=== PATIENT | male | born 1930 | race Caucasian/White ===

== ENCOUNTER 2017-07-24 02:13 | Inpatient (IN) | payer MEDICARE ==
[~2017-07-24] VITALS: Ht 170.2 cm; Wt 74.9 kg
[2017-07-24 02:33] LABS: GLUCOSE,POINT OF CARE 119 MG/DL (70-110)
[2017-07-24 03:00] LABS: BASOPHILS # (AUTO) 0.02 K/uL (0.00-0.20); BASOPHILS % (AUTO) 0.2 % (0.0-2.0); EOSINOPHILS # (AUTO) 0.11 K/uL (0.00-0.70); EOSINOPHILS % (AUTO) 1.07 % (1.0-6.0); HEMATOCRIT 46.7 % (41-53); HEMOGLOBIN 15.7 g/dL (13.5-17.5); LYMPHOCYTES # (AUTO) 1.2 K/uL (1.0-4.8); LYMPHOCYTES % (AUTO) 11.6 % (22.0-44.0); MEAN CORPUSCULAR HGB CONC 33.7 G/dL (31.0-37.0); MEAN CORPUSCULAR VOLUME 95 fL (80-100); MONOCYTES # (AUTO) 0.8 K/uL (0.1-1.0); MONOCYTES % (AUTO) 8.3 % (2.0-9.0); NEUTROPHILS % (AUTO) 78.9 % (40.0-70.0); PLATELET COUNT (AUTO) 151 K/uL (150-450); RED BLOOD CELL COUNT(AUTO) 4.91 MIL/uL (4.50-5.90); RED CELL DISTRIBUTION WIDTH 13.2 % (11.5-14.5)
[2017-07-24 03:20] LABS: ANION GAP 6 mmol/L (8-16); CALCIUM, TOTAL 9.3 mg/dL (8.8-10.5); CARBON DIOXIDE 31 mmol/L (22-29); CHLORIDE 104 mmol/L (98-107); CREATININE 1.08 mg/dL (0.60-1.30); GLOMERULAR FILTR. RATE CALC > 60 mL/min (>60); GLUCOSE,RANDOM 115 mg/dL (70-110); POTASSIUM 4.2 mmol/L (3.5-5.1); SODIUM SERUM 141 mmol/L (136-145); UREA NITROGEN, BLOOD 17 mg/dL (7-18)
[2017-07-24 03:26] LABS: ALANINE AMINOTRANSFERASE 24 U/L (12-78); ALBUMIN 3.9 g/dL (3.4-5.0); ALKALINE PHOSPHATASE 94 U/L (46-116); ASPARTATE AMINOTRANSFERASE 22 U/L (15-37); BILIRUBIN,TOTAL 0.4 mg/dL (0.1-1.0); TOTAL PROTEIN, SERUM 7.1 g/dL (6.4-8.2)
[2017-07-24 06:44] LABS: APPEARANCE,URINE CLEAR (CLEAR); BILIRUBIN,URINE NEGATIVE (NEGATIVE); GLUCOSE, URINE (UA) NEGATIVE (NEGATIVE); KETONES,URINE NEGATIVE (NEGATIVE); LEUKOCYTE ESTERASE ,URINE NEGATIVE (NEGATIVE); NITRATE,URINE NEGATIVE (NEGATIVE); OCCULT BLOOD,URINE NEGATIVE (NEGATIVE); PH,URINE 5.5 (5.0-8.0); PROTEIN,URINE NEGATIVE (NEGATIVE); UROBILINOGEN,URINE 0.2 mg/dL (<=1.0)
[2017-07-24] MEDS ORDERED: ONDANSETRON HCL 4 MG/2 ML VIAL IVP PRN ×2 (10:30→14:30)
[2017-07-24] MEDS ORDERED: ACETAMINOPHEN 325 MG TABLET PO PRN ×2 (10:30→14:30)
[2017-07-24] MEDS ORDERED: 0.9% SODIUM CHLORIDE 10 ML SYRINGE IVP PRN (10:30)
[2017-07-24 11:30] VITALS: BP 148/96
[2017-07-24] MEDS ORDERED: INFLUENZA VIRUS VACCINE QVS 2017-18 (3YR+)/PF 60 MCG/0.5 ML SYRINGE IM ONE (11:45)
[2017-07-24] MEDS ORDERED: HYDROCODONE/ACETAMINOPHEN 5-325 MG TABLET PO PRN (14:30)
[2017-07-24] MEDS ORDERED: SODIUM CHLORIDE 0.9% 1,000 ML IV ONE (14:30)
[2017-07-24] MEDS ORDERED: BISACODYL 10 MG RECTAL RECTAL SUPPOSITORY PR PRN (14:30)
[2017-07-24] MEDS ORDERED: MAGNESIUM HYDROXIDE SUSPENSION 30 ML UDCUP PO PRN (14:30)
[2017-07-24] MEDS ORDERED: ZOLPIDEM TARTRATE 5 MG TABLET PO PRN (14:30)
[2017-07-24] MEDS ORDERED: MORPHINE SULFATE 2 MG/ML SYRINGE IVP PRN (14:30)
[2017-07-24 15:54] VITALS: BP 133/69
[2017-07-24 16:05] VITALS: BP 128/82
[2017-07-24] MEDS: HEPARIN SODIUM,PORCINE 5,000 UNITS/ML VIAL SQ SCH ×2 (17:40→23:33)
[2017-07-24 19:50] VITALS: BP 138/66
[2017-07-24] MEDS: DOCUSATE SODIUM 100 MG CAPSULE PO SCH (20:17)
[2017-07-24] MEDS: RisperiDONE 1 MG TABLET PO SCH (20:17)
[2017-07-24] MEDS ORDERED: DOCUSATE SODIUM 100 MG CAPSULE PO SCH (21:00)
[2017-07-24] MEDS: VENLAFAXINE HCL 150 MG ER CAPSULE PO SCH (23:33)
[2017-07-25] VITALS (7 sets, daily range): BP systolic 108–126; BP diastolic 65–68
[2017-07-25] MEDS ORDERED: PANTOPRAZOLE SODIUM 40 MG DR TABLET PO SCH (08:00)
[2017-07-25] MEDS: HEPARIN SODIUM,PORCINE 5,000 UNITS/ML VIAL SQ SCH ×3 (08:59→23:45)
[2017-07-25] MEDS: ASPIRIN 81 MG EC TABLET PO SCH (08:59)
[2017-07-25] MEDS: DOCUSATE SODIUM 100 MG CAPSULE PO SCH ×2 (08:59→21:11)
[2017-07-25] MEDS ORDERED: AmLODIPine BESYLATE 5 MG TABLET PO SCH (09:00)
[2017-07-25] MEDS: ATENOLOL 50 MG TABLET PO SCH (09:00)
[2017-07-25] MEDS: PANTOPRAZOLE SODIUM 40 MG DR TABLET PO SCH (09:00)
[2017-07-25 10:33] LABS: FOLATE SERUM 11.2 ng/mL (5.4-)
[2017-07-25] MEDS: RisperiDONE 1 MG TABLET PO SCH (21:11)
[2017-07-25] MEDS: VENLAFAXINE HCL 150 MG ER CAPSULE PO SCH (21:11)
[2017-07-26 05:24] VITALS: BP 116/60
[2017-07-26] MEDS: ASPIRIN 81 MG EC TABLET PO SCH (08:13)
[2017-07-26] MEDS: ATENOLOL 50 MG TABLET PO SCH (08:14)
[2017-07-26] MEDS: HEPARIN SODIUM,PORCINE 5,000 UNITS/ML VIAL SQ SCH ×3 (08:14→23:38)
[2017-07-26] MEDS: DOCUSATE SODIUM 100 MG CAPSULE PO SCH ×2 (08:14→20:21)
[2017-07-26] MEDS: PANTOPRAZOLE SODIUM 40 MG DR TABLET PO SCH (08:14)
[2017-07-26 08:34] VITALS: BP 115/60
[2017-07-26 12:30] VITALS: BP 116/56
[2017-07-26 16:12] VITALS: BP 102/58
[2017-07-26 19:13] VITALS: BP 123/67
[2017-07-26] MEDS: VENLAFAXINE HCL 150 MG ER CAPSULE PO SCH (20:20)
[2017-07-26] MEDS: RisperiDONE 1 MG TABLET PO SCH (20:21)
[2017-07-27 07:56] VITALS: BP 115/62
[2017-07-27] MEDS: PANTOPRAZOLE SODIUM 40 MG DR TABLET PO SCH (08:36)
[2017-07-27] MEDS: ATENOLOL 50 MG TABLET PO SCH (08:36)
[2017-07-27] MEDS: HEPARIN SODIUM,PORCINE 5,000 UNITS/ML VIAL SQ SCH ×3 (08:36→23:59)
[2017-07-27] MEDS: DOCUSATE SODIUM 100 MG CAPSULE PO SCH ×2 (08:36→21:32)
[2017-07-27] MEDS: ASPIRIN 81 MG EC TABLET PO SCH (08:37)
[2017-07-27 12:23] VITALS: BP 115/57
[2017-07-27 19:42] VITALS: BP 144/66
[2017-07-27] MEDS: VENLAFAXINE HCL 150 MG ER CAPSULE PO SCH (21:33)
[2017-07-27] MEDS: RisperiDONE 1 MG TABLET PO SCH (21:33)
[2017-07-27 23:03] VITALS: BP 132/59
[2017-07-28 05:05] VITALS: BP 126/61
[2017-07-28] MEDS: ASPIRIN 81 MG EC TABLET PO SCH (08:27)
[2017-07-28] MEDS: ATENOLOL 50 MG TABLET PO SCH (08:27)
[2017-07-28] MEDS: DOCUSATE SODIUM 100 MG CAPSULE PO SCH (08:27)
[2017-07-28] MEDS: HEPARIN SODIUM,PORCINE 5,000 UNITS/ML VIAL SQ SCH (08:27)
[2017-07-28] MEDS: PANTOPRAZOLE SODIUM 40 MG DR TABLET PO SCH (08:27)
[2017-07-28 12:05] VITALS: BP 115/73
[2017-07-28 15:33] VITALS: BP 112/68
== END 2017-07-28 17:15 | disposition home or self-care (01) | DRG 641 ==
LOC: EMS 02:14 → 6N 10:46
PROVIDERS: ADMIT Internal Medicine; ATTEND Internal Medicine
PROC: 3E0234Z Introduction of Serum, Toxoid and Vaccine into Muscle, Percutaneous Approach (ICD-10-PCS; principal; 2017-07-24)
DX: R62.7 Adult failure to thrive (principal); G30.9 Alzheimer's disease, unspecified; F02.81 Dementia in other diseases classified elsewhere, unspecified severity, with behavioral disturbance; G20 Parkinson's disease; G93.89 Other specified disorders of brain; E86.0 Dehydration; R53.81 Other malaise; I10 Essential (primary) hypertension; S80.211A Abrasion, right knee, initial encounter; S80.212A Abrasion, left knee, initial encounter; Z79.899 Other long term (current) drug therapy; Z23 Encounter for immunization
CPT/HCPCS: 70450; 82607; 82746; 82962; 84443; 90471; 93005; 97116; 97162; 97530; 99285; G0480; J1644; J7030